=== PATIENT | female | born 1980 | race Caucasian/White ===

== ENCOUNTER 2017-03-03 10:34 | Inpatient (IN) | payer BC ==
[2017-03-03] MEDS ORDERED: Ampicillin 2 GM in Sodium Chloride 0.9% 100 ML IV ONE (11:30)
[2017-03-03] MEDS ORDERED: Nalbuphine 20 MG/1 ML Amp IVPUSH PRN (11:52)
[2017-03-03] MEDS ORDERED: Sodium Chloride 0.9% 10 ML Syringe FLUSH PRN (11:52)
[2017-03-03] MEDS ORDERED: Ondansetron 4 MG/2 ML SDV IVPUSH PRN (11:52)
[2017-03-03] MEDS ORDERED: Oxytocin/Lactated Ringers 10 UNIT/1,000 ML BAG IV SCH (12:00)
[2017-03-03] MEDS ORDERED: Lactated Ringers 1,000 ML IV SCH (12:00)
--- NOTE | 2017-03-03 13:43 | PCM.SN ---
- Free Text/Narrative Note: Poonam is a 37-year-old white female who was admitted in active labor on the a.m. of 03/03/2017 at 37 6/7 gestational age. She has an ÁLVARO of 03/18/2017 as determined by an ultrasound at 7 0/7 weeks gestational age on 07/30/2016. Her LMP was 05/30/2016. She began labor in the evening of 03/02/2017. Her sac broke around 0945 on 03/03/2017, prior to admission. She tested positive for membrane rupture at 1102. Fluids have been clear. She is having regular contractions of moderate to strong intensity. course: She was seen for her first visit at 12 weeks gestational age on 09/03/2016. Her weight increased from 128 lbs to 176 lbs for a 48 lb weight gain. She noted some decreased activity at 36 weeks gestation. NST was reactive and no contractions noted at the time. She had PIH with her first 17 years ago. No concerns with blood pressure during this . She is GBS positive. lab testing: Blood type is A negative , antibody screen was negative. Initial hemoglobin was 12.3 g/dl and platelets were 284,000. She is rubella immune. Hepatitis B and HIV were negative. Second trimester testing showed hemoglobin of 11.7 g/dl and platelets were 244,000. Urine was normal with 1+ leukocyte esterase. She tested positive for MTHFR Allergies: none Medications: Multiple vitamins oral tablet and TriStart DHA caps Past Medical History: PIH with first 17 years prior, history of abnormal PAP with HPV positive and normal colposcopy, PCOS, MTHFR Past Surgical History: none Family history: Mother - diverticulosis; father - benign tumor in jaw; 2 brothers alive and well; 3 sisters alive and well; no related problems in siblings; MGM - alive, some HD; MGF - of heart failure; PGF - of prostate cancer; MGM - alive and in old age; no history of female cancers or bleeding/clotting disorders. FOB Niece with heart defect Social History: Patient is . is Nicolas. She does not use any significant alcohol, drugs, or tobacco. She lives in [place], [place]. Review of symptoms: General: patient having no concerns other than contractions Skin: negative HEENT: negative Lungs: no shortness of breath Cardiovascular: no chest pain Breasts: changes associated with only GI: negative : changes associated with Neurological: negative Muscular skeletal: negative Physical Exam In general patient is a well-developed, well-nourished, pleasant female in active labor with contractions at the time of the interview. She is somewhat uncomfortable due to contractions. She appears to be a good historian. Skin: dry, warm, no lesions HEENT: neck and back are normal Lungs: clear, good breath sounds in all lung [place] Cardiovascular: RRR, without murmurs Breast exam: deferred, patient plans to nurse Abdomen is protuberant, fundal height consistent with term Musculoskeletal is within normal limits Assessment: 1: 37 6/7 week intrauterine in active labor 2: Group B strep positive 3: Patient is blood type A negative 4: Patient plans to nurse 5: Low risk 6: Patient desires natural without epidural Plan: 1: Anticipate normal vaginal delivery 2: Rhogam after delivery 3: Support nursing 4: Routine care
--- NOTE | 2017-03-03 15:07 | PCM.SN ---
- Free Text/Narrative Note: Delivery note:
[2017-03-03] MEDS ORDERED: Acetaminophen 325 MG Tab PO PRN (15:38)
[2017-03-03] MEDS ORDERED: Witch Hazel Medicated Pads 100/Jar TOP PRN (15:38)
[2017-03-03] MEDS ORDERED: Ibuprofen 600 MG Tab PO PRN (15:38)
[2017-03-03] MEDS ORDERED: Docusate Sodium 100 MG Cap PO PRN (15:38)
[2017-03-03] MEDS ORDERED: Lanolin 100% Cream 7 GM Tube TOP PRN (15:38)
[2017-03-03] MEDS ORDERED: Benzocaine/Menthol 20%-0.5% Spray 56 GM Canister TOP PRN (15:38)
[2017-03-03] MEDS ORDERED: Ampicillin 1 GM in Sodium Chloride 0.9% 100 ML IV SCH (16:00)
--- NOTE | 2017-03-04 11:11 | PCM.SN ---
- Free Text/Narrative Note: day 1: She is doing well. She has voided and had a bowel movement. Nursing is going well, no problems. She is ambulating. She notes some pain in her upper abdomen, lower rib cage on the right. She is afebrile and vital signs are stable. Abdomen is flat and nontender. Uterus is about 3 finger breadths below the umbilicus and firm. No significant edema Pain in her ribs is not tender to palpation. No skin changes noted. The pain is most likely musculoskeletal pain secondary to labor contractions and delivery. Hemoglobin - 13.2, hematocrit - 37.6, WBC - 13.27, platelets - 242 Assessment: day 1 recovery is good Plan: routine care Discharge home tomorrow
[2017-03-04] MEDS: Prenatal Multivitamin with Calcium/Folic Acid/Iron Tab PO SCH (15:12)
--- NOTE | 2017-03-05 09:01 | PCM.SN ---
- Free Text/Narrative Note: note day #2 Subjective: Patient is overall doing well. She denies any abdominal pain. She reports minimal lochia that is similar to a menstrual cycle. She reports she is breast-feeding without difficulty. She is tolerating regular diet. She is voiding without difficulty. She has had a bowel movement and is not having any difficulty. She denies any headaches, vision changes, or right upper quadrant pain. She denies any fevers or chills. Objective: Vital signs: T 36.1C HR: 63-88 (most recent 88) BP: 120s-140s/80s-90s (most recent 142/95) RR: 15-20 Gen.: No acute distress, alert and oriented Lungs: Clear to auscultation bilaterally Heart: Regular rate and rhythm Abdomen: Soft, nondistended, nontender, fundus 2 fingerbreadths below the umbilicus and nontender and midline Extremities: 1+ edema in feet to ankles bilaterally Labs: H/H: 13.2/37.6 -> 12.2/35.0 (03/05/17) Platelets: 242 -> 229 (03/05/17) AST: 19 ALT: 15 Assessment/plan: 37-year-old female day #2 status post with preeclampsia without severe features 1. Routine care 2. Continue close monitoring of blood pressures while admitted 3. Patient overall doing well anticipate patient to be discharged home today 4. Patient is nursing without difficulty 5. Patient should follow-up in the clinic on Friday or Friday for blood pressure check Lopez Spivey M.D. 9:06 AM 03/05/17
--- NOTE | 2017-03-05 09:31 | PCM.DCSUM1 ---
Discharge Summary - Hospital Course Free Text/Narrative:: Poonam is a 37-year-old 2 para 2001 white female who is admitted on 2016 in active labor with spontaneous rupture membranes. She progressed spontaneously to complete cervical dilation by approximately 1400 hrs. At 1449 hrs. on 03/03/2017 the patient delivered a velazquez, viable, female infant with Apgars of 8 and 9, a weight of 6 pounds 9.8 ounces (3000 g), a length of 19.5 inches in an occiput anterior position. Patient was in an all fours position on the bed for the delivery. Patient had no perineal lacerations. The cord was allowed to pulsate until it stopped then was clamped 2 and the father was allowed to cut the cord. The baby was placed on mom's abdomen. Nose and mouth were bulb suctioned. Pitocin was started after delivery of the baby to facilitate increase in uterine tone and decrease chance of bleeding. The placenta delivered intact, complete in a Bella presentation. The umbilical cord had 3 vessels. Estimated blood loss was 100 mL. The patient nursed after delivery. Condition: Good Patient had an overall uncomplicated course. She did have several elevated blood pressures without any signs or symptoms of preeclampsia with severe features. She was not treated with magnesium. She was discharged home on day #2 in good condition. She will follow up for blood pressure check in 3-5 days. HPI Initial Comments: Poonam is a 37-year-old 2 para 2001 white female who is admitted on 2016 in active labor with spontaneous rupture membranes. She progressed spontaneously to complete cervical dilation by approximately 1400 hrs. At 1449 hrs. on 03/03/2017 the patient delivered a velazquez, viable, female with Apgars of 8 and 9, a weight of 6 pounds 9.8 ounces (3000 g), a length of 19.5 inches in an occiput anterior position. Patient was in an all fours position on the bed for the delivery. Patient had no perineal lacerations. The cord was allowed to pulsate until it stopped then was clamped 2 and the father was allowed to cut the cord. The baby was placed on mom's abdomen. Nose and mouth were bulb suctioned. Pitocin was started after delivery of the baby to facilitate increase in uterine tone and decrease chance of bleeding. The placenta delivered intact, complete in a Bella presentation. The umbilical cord had 3 vessels. Estimated blood loss was 100 mL. The patient nursed after delivery. Condition: Good Patient had an overall uncomplicated course. She did have several elevated blood pressures without any signs or symptoms of preeclampsia with severe features. She was not treated with magnesium. She was discharged home on day #2 in good condition. She will follow up for blood pressure check in 3-5 days. Brief History: Poonam is a 37-year-old 2 para 2001 white female who is admitted on 03/03/2017 in active labor with spontaneous rupture membranes. She progressed spontaneously to complete cervical dilation by approximately 1400 hrs. At 1449 hrs. on 03/03/2017 the patient delivered a velazquez, viable, female infant with Apgars of 8 and 9, a weight of 6 pounds 9.8 ounces (3000 g), a length of 19.5 inches in an occiput anterior position. Patient was in an all fours position on the bed for the delivery. Patient had no perineal lacerations. The cord was allowed to pulsate until it stopped then was clamped 2 and the father was allowed to cut the cord. The baby was placed on mom's abdomen. Nose and mouth were bulb suctioned. Pitocin was started after delivery of the baby to facilitate increase in uterine tone and decrease chance of bleeding. The placenta delivered intact, complete in a Bella presentation. The umbilical cord had 3 vessels. Estimated blood loss was 100 mL. The patient nursed after delivery. Condition: Good. Patient had an overall uncomplicated course. She did have several elevated blood pressures without any signs or symptoms of preeclampsia with severe features. She was not treated with magnesium. She was discharged home on day #2 in good condition. She will follow up for blood pressure check in 3-5 days. - Discharge Data Discharge Date: 03/05/17 Discharge Disposition: Home, Self-Care 01 Condition: Good - Discharge Diagnosis/Problem(s) (1) (normal spontaneous vaginal delivery) SNOMED Code(s): 36577546 ICD Code: O80 - ENCOUNTER FOR FULL-TERM UNCOMPLICATED DELIVERY Status: Acute Current Visit: Yes Onset Date: ~03/03/17 (2) Mild pre-eclampsia, SNOMED Code(s): 55748656 ICD Code: O14.05 - MILD TO MODERATE PRE-ECLAMPSIA, COMPLICATING THE PUERPERIUM Status: Acute Current Visit: Yes Onset Date: ~03/03/17 - Patient Summary/Data Complications: None Consults: None Labs Pending at D/C: None Hospital Course: Overall uneventful. Several mildly elevated blood pressures that did not require any treatment. - Patient Instructions Diet: Regular Diet as Tolerated Activity: As Tolerated Driving: Do Not Drive (For 48 hours) Showering/Bathing: May Shower Notify Provider of: Fever, Increased Pain, Swelling and Redness, Drainage, Nausea and/or Vomiting - Discharge Plan Prescriptions/Med Rec: Lidocaine/Prilocaine [Lidocaine-Prilocaine Cream] 30 gm TP TID #30 cream..g. Home Medications: Home Meds Vits #93/Iron Fum/FA [ Formula Tablet] 1 tab PO DAILY 03/03/17 [History] Acetaminophen [Tylenol] 650 mg PO Q6H PRN tablet 03/05/17 [Rx] Benzocaine/Menthol [Dermoplast Pain Relief [place]] 1 spray TOP ASDIRECTED PRN canister 03/05/17 [Rx] Docusate Sodium [Colace] 100 mg PO BID PRN cap 03/05/17 [Rx] Ibuprofen [IJD: Ibuprofen] 600 mg PO Q6H PRN tablet 03/05/17 [Rx] Lanolin [Lansinoh HPA] 1 applic TOP ASDIRECTED PRN tube 03/05/17 [Rx] Lidocaine/Prilocaine [Lidocaine-Prilocaine Cream] 30 gm TP TID #30 cream..g. [Rx] Vit with Ca/FA/Iron [ Plus Iron] 1 each PO DAILY tablet [Rx] Arsen Melissa [Tucks] 1 pad TOP ASDIRECTED PRN pad 03/05/17 [Rx] Referrals: Isaac Rock MD [Physician] - (Follow-up on for blood pressure check and in [address] Rock for routine check.) - Discharge Summary/Plan Comment DC Time >30 min.: No - Patient Data Vitals - Most Recent: Last Vital Signs Temp 36.1 C 03/05/17 05:03 Pulse 88 03/05/17 05:48 Resp 15 03/05/17 05:03 BP 142/95 H 03/05/17 05:48 Pulse Ox 100 03/05/17 05:48 Weight - Most Recent: 73.482 kg I&O - Last 24 hours: Intake & Output 03/04/17 03/05/17 03/05/17 22:59 06:59 14:59 Intake Total 380 Balance 380 Lab Results - Last 24 hrs: Laboratory Results - last 24 hr 03/05/17 03/05/17 Range/Units 02:27 02:27 WBC 10.50 H (3.98-10.04) K/mm3 RBC 3.92 L (3.98-5.22) M/mm3 Hgb 12.2 (11.2-15.7) gm/L Hct 35.0 (34.1-44.9) % MCV 89.3 (79.4-94.8) fl MCH 31.1 (25.6-32.2) pg MCHC 34.9 (32.2-35.5) g/dl RDW Std Deviation 41.3 (36.4-46.3) fL Plt Count 229 (182-369) K/mm3 MPV 9.6 (9.4-12.3) fl Neut % (Auto) 64.2 (34.0-71.1) % Lymph % (Auto) 21.5 (19.3-51.7) % Steele % (Auto) 9.8 (4.7-12.5) % Eos % (Auto) 3.7 (0.7-5.8) Baso % (Auto) 0.4 (0.1-1.2) % Neut # (Auto) 6.74 H (1.56-6.13) K/mm3 Lymph # (Auto) 2.26 (1.18-3.74) K/mm3 Steele # (Auto) 1.03 H (0.24-0.36) K/mm3 Eos # (Auto) 0.39 H (0.04-0.36) K/mm3 Baso # (Auto) 0.04 (0.01-0.08) K/mm3 Sodium 140 (136-145) mEq/L Potassium 3.4 L (3.5-5.1) mEq/L Chloride 103 (98-107) mEq/L Carbon Dioxide 30 (21-32) mEq/L Anion Gap 10.4 (5-15) BUN 9 (7-18) mg/dL Creatinine 0.5 L (0.55-1.02) mg/dL Est Cr Clr Drug Dosing 139.97 mL/min Estimated GFR (MDRD) > 60 (>60) mL/min BUN/Creatinine Ratio 18.0 (14-18) Glucose 84 (74-106) mg/dL Calcium 8.8 (8.5-10.1) mg/dL Total Bilirubin 0.3 (0.2-1.0) mg/dL AST 19 (15-37) U/L ALT 15 (14-59) U/L Alkaline Phosphatase 89 (46-116) U/L Total Protein 6.4 (6.4-8.2) g/dl Albumin 2.6 L (3.4-5.0) g/dl Globulin 3.8 gm/dL Albumin/Globulin Ratio 0.7 L (1-2) Med Orders - Current: Current Medications Acetaminophen (Tylenol) 650 mg PO Q4H PRN PRN Reason: mild pain or fever Benzocaine/Menthol (Dermoplast Pain Relief [place]) 0 gm TOP ASDIRECTED PRN PRN Reason: Perineal Comfort Measure Last Admin: 03/03/17 17:16 Dose: 1 can Docusate Sodium (Colace) 100 mg PO BID PRN PRN Reason: Constipation Emollient Ointment (Lansinoh Hpa) 0 gm TOP ASDIRECTED PRN PRN Reason: Sore Nipples Last Admin: 03/04/17 15:12 Dose: 1 tube Ibuprofen (Motrin) 600 mg PO Q4H PRN PRN Reason: Mild pain or fever Prenat Multivit/Product Safety Associate/Iron/Folic Ac ( Plus Iron) 1 each PO DAILY RODRIGUEZ Last Admin: 03/04/17 15:12 Dose: Not Given Witch Melissa (Tucks) 1 pad TOP ASDIRECTED PRN PRN Reason: Hemorrhoid pain Last Admin: 03/03/17 17:16 Dose: 1 box Discontinued Medications Ampicillin Sodium 2 gm/ Sodium (Chloride) 100 mls @ 200 mls/hr IV ONETIME ONE Stop: 03/03/17 11:59 Last Admin: 03/03/17 11:50 Dose: 200 mls/hr Ampicillin Sodium 1 gm/ Sodium (Chloride) 100 mls @ 200 mls/hr IV Q4H RODRIGUEZ Lactated Ringer's (Ringers, Lactated) 1,000 mls @ 100 mls/hr IV ASDIRECTED RODRIGUEZ Last Admin: 03/03/17 11:50 Dose: 100 mls/hr Oxytocin/Lactated Ringer's (Pitocin In Lr 10 Units/1,000 Ml) 10 unit in 1,000 mls @ 500 mls/hr IV .CONTINUOUS RODRIGUEZ Last Admin: 03/03/17 15:00 Dose: 500 mls/hr Nalbuphine HCl (Nubain) 10 mg IVPUSH Q2H PRN PRN Reason: Pain (moderate 4-6) Ondansetron HCl (Zofran) 4 mg IVPUSH Q4H PRN PRN Reason: Nausea/Vomiting Sodium Chloride (Saline Flush) 10 ml FLUSH ASDIRECTED PRN PRN Reason: Keep Vein Open *Q Meaningful Use (DIS) - VTE *Q VTE Criteria *Q: - Stroke *Q Stroke Criteria *Q: - AMI *Q AMI Criteria *Q:
[2017-03-05] MEDS: Prenatal Multivitamin with Calcium/Folic Acid/Iron Tab PO SCH (10:58)
[2017-03-05] MEDS ORDERED: Zolpidem 5 MG Tab PO ONE (12:40)
[2017-03-05 18:46] VITALS: BP 135/88
--- NOTE | 2017-03-11 06:31 | PCM.LDHP ---
L&D History of Present Illness - General Date of Service: 03/03/17 Admit Problem/Dx: Admission Diagnosis/Problem Admission Diagnosis/Problem Normal labor 03/11/17 06:30 Poonam is a 37-year-old white female who was admitted in active labor on the a.m. of 03/03/2017 at 37 6/7 gestational age. She has an ÁLVARO of 03/18/2017 as determined by an ultrasound at 7 0/7 weeks gestational age on 07/30/2016. Her LMP was 05/30/2016. She began labor in the evening of 03/02/2017. Her sac broke around 0945 on 03/03/2017, prior to admission. She tested positive for membrane rupture at 1102. Fluids have been clear. She is having regular contractions of moderate to strong intensity. course: She was seen for her first visit at 12 weeks gestational age on 09/03/2016. Her weight increased from 128 lbs to 176 lbs for a 48 lb weight gain. She noted some decreased activity at 36 weeks gestation. NST was reactive and no contractions noted at the time. She had PIH with her first 17 years ago. No concerns with blood pressure during this . She is GBS positive. lab testing: Blood type is A negative , antibody screen was negative. Initial hemoglobin was 12.3 g/dl and platelets were 284,000. She is rubella immune. Hepatitis B and HIV were negative. Second trimester testing showed hemoglobin of 11.7 g/dl and platelets were 244,000. Urine was normal with 1+ leukocyte esterase. She tested positive for MTHFR Allergies: none Medications: Multiple vitamins oral tablet and TriStart DHA caps Past Medical History: PIH with first 17 years prior, history of abnormal PAP with HPV positive and normal colposcopy, PCOS, MTHFR Past Surgical History: none Family history: Mother - diverticulosis; father - benign tumor in jaw; 2 brothers alive and well; 3 sisters alive and well; no related problems in siblings; MGM - alive, some HD; MGF - of heart failure; PGF - of prostate cancer; MGM - alive and in old age; no history of female cancers or bleeding/clotting disorders. FOB Niece with heart defect Social History: Patient is . is Nicolas. She does not use any significant alcohol, drugs, or tobacco. She lives in [place], [place]. Review of symptoms: General: patient having no concerns other than contractions Skin: negative HEENT: negative Lungs: no shortness of breath Cardiovascular: no chest pain Breasts: changes associated with only GI: negative : changes associated with Neurological: negative Muscular skeletal: negative Physical Exam In general patient is a well-developed, well-nourished, pleasant female in active labor with contractions at the time of the interview. She is somewhat uncomfortable due to contractions. She appears to be a good historian. Skin: dry, warm, no lesions HEENT: neck and back are normal Lungs: clear, good breath sounds in all lung [place] Cardiovascular: RRR, without murmurs Breast exam: deferred, patient plans to nurse Abdomen is protuberant, fundal height consistent with term Musculoskeletal is within normal limits Assessment: 1: 37 6/7 week intrauterine in active labor 2: Group B strep positive 3: Patient is blood type A negative 4: Patient plans to nurse 5: Low risk 6: Patient desires natural without epidural Plan: 1: Anticipate normal vaginal delivery 2: Rhogam after delivery 3: Support nursing 4: Routine care - Related Data Allergies/Adverse Reactions: Allergies Allergy/AdvReac Type Severity Reaction Status Date / Time No Known Allergies Allergy Verified 12/13/16 12:51 Home Medications: Home Meds Vits #93/Iron Fum/FA [ Formula Tablet] 1 tab PO DAILY 03/03/17 [History] Acetaminophen [Tylenol] 650 mg PO Q6H PRN tablet 03/05/17 [Rx] Benzocaine/Menthol [Dermoplast Pain Relief [place]] 1 spray TOP ASDIRECTED PRN canister 03/05/17 [Rx] Docusate Sodium [Colace] 100 mg PO BID PRN cap 03/05/17 [Rx] Ibuprofen [IJD: Ibuprofen] 600 mg PO Q6H PRN tablet 03/05/17 [Rx] Lanolin [Lansinoh HPA] 1 applic TOP ASDIRECTED PRN tube 03/05/17 [Rx] Lidocaine/Prilocaine [Lidocaine-Prilocaine Cream] 30 gm TP TID #30 cream..g. 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 Social & Family History - Family History Family Medical History: Noncontributory - Tobacco Use Smoking Status *Q: Never Smoker Second Hand Smoke Exposure: No - Caffeine Use Caffeine Use: Reports: None - Recreational Drug Use Recreational Drug Use: No H&P Review of Systems - Review of Systems: Review Of Systems: See Below L&D Exam - Exam Exam: See Below - Vital Signs Vital Signs: Last Vital Signs Temp 36.6 C 03/05/17 12:01 Pulse 73 03/05/17 12:01 Resp 15 03/05/17 12:01 BP 135/88 03/05/17 18:00 Pulse Ox 97 03/05/17 12:01 Weight: 73.482 kg - Patient Data Result Diagrams: 03/05/17 02:27 03/05/17 02:27 Problem List Initiated/Reviewed/Updated: Yes Assessment/Plan Comment:: Assessment: 1: 37 6/7 week intrauterine in active labor 2: Group B strep positive 3: Patient is blood type A negative 4: Patient plans to nurse 5: Low risk 6: Patient desires natural without epidural Plan: 1: Anticipate normal vaginal delivery 2: Rhogam after delivery 3: Support nursing 4: Routine care
== END 2017-03-05 18:00 | disposition home or self-care (01) | DRG 560 ==
LOC: JD.OBCHECK 10:34 → JD.OB 10:37 → JD.OBCHECK 11:52 → JD.OB 11:53 → OBSVTOIN 14:49 → JD.OB 14:49
PROVIDERS: ADMIT Obstetrics & Gynecology; ATTEND Obstetrics & Gynecology
PROC: 10E0XZZ Delivery of Products of Conception, External Approach (ICD-10-PCS; principal; 2017-03-03)
DX: O42.02 Full-term premature rupture of membranes, onset of labor within 24 hours of rupture (principal); O99.824 Streptococcus B carrier state complicating childbirth; O14.05 Mild to moderate pre-eclampsia, complicating the puerperium; O69.81X0 Labor and delivery complicated by cord around neck, without compression, not applicable or unspecified; Z3A.38 38 weeks gestation of pregnancy; Z37.0 Single live birth
CPT/HCPCS: 36415; 59409; 80053; 84112; 85025; 85027; 85461; 86850; 86870; 86900; 86901; A9270-GY; J0290; J2590; J2790; J7030; J7120

== ENCOUNTER 2018-08-07 09:58 | Day surgery (SDC) | payer BC ==
--- NOTE | 2018-08-06 16:50 | PCM.LDHP ---
L&D History of Present Illness - General Date of Service: 08/07/18 Admit Problem/Dx: Admission Diagnosis/Problem Admission Diagnosis/Problem 08/06/18 16:20 Nonviable -9 weeks gestational age Source of Information: Patient History Limitations: Reports: No Limitations - Related Data Allergies/Adverse Reactions: Allergies Allergy/AdvReac Type Severity Reaction Status Date / Time No Known Allergies Allergy Verified 12/13/16 12:51 Home Medications: Home Meds Vits #93/Iron Fum/FA [ Formula Tablet] 1 tab PO DAILY 03/03/17 [History] Acetaminophen [Tylenol] 650 mg PO Q6H PRN tablet 03/05/17 [Rx] Benzocaine/Menthol [Dermoplast Pain Relief [place]] 1 spray TOP ASDIRECTED PRN canister 03/05/17 [Rx] Docusate Sodium [Colace] 100 mg PO BID PRN cap 03/05/17 [Rx] Ibuprofen [IJD: Ibuprofen] 600 mg PO Q6H PRN tablet 03/05/17 [Rx] Lanolin [Lansinoh HPA] 1 applic TOP ASDIRECTED PRN tube 03/05/17 [Rx] Lidocaine/Prilocaine [Lidocaine-Prilocaine Cream] 30 gm TP TID #30 cream..g. [Rx] Vit with Ca/FA/Iron [ Plus Iron] 1 each PO DAILY tablet [Rx] Witaleyda Melissa [Tucks] 1 pad TOP ASDIRECTED PRN pad 03/05/17 [Rx] Past Medical History [employer] BU[employer] P[employer] History: Reports: Polycystic Ovaries Social & Family History - Family History Family Medical History: Noncontributory - Caffeine Use Caffeine Use: Reports: None
--- NOTE | 2018-08-07 07:29 | HP ---
DATE OF ADMISSION: 08/07/2018 PREOPERATIVE HISTORY AND PHYSICAL ADMISSION DIAGNOSIS: Nonviable -9 weeks' gestational age. HISTORY OF PRESENT ILLNESS: The patient is a 38-year-old, 3, now para 2-0-1-2 white female, who has been assigned an ÁLVARO of 02/24/2019 by early ultrasound, who now was seen for first visit on 08/06/2018, at which time ultrasound showed no evidence of cardiac activity or activity. Confirmatory ultrasound was done in Radiology and supported the ultrasound done in clinic. At this time, etiology of her demise is unknown. Alternatives of care including natural passage of the tissue, Cytotec induction, or dilation suction and curettage have been presented to the patient. The procedures, risks, benefits, alternatives of care were discussed in detail. She has elected to undergo dilation suction and curettage. Consent is signed. 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 The patient is MTHFR positive. Has been on additional folic acid 1 mg per day orally. She has been on progesterone supplementation also. She had a history of 2 vaginal deliveries; first one a male born 12/17/1998 at age 38 weeks' gestational, 6 hour labor, 6 pounds 6 ounce, delivered in [place], had -induced hypertension, baby's name is Srinivas. Second child is female born 03[birth year]03[birth year]2017 at 38 and 6/7th weeks after 6 hours of labor, a 6 pound 11 ounce female named Isabela Cuello. The patient had menarche at age 14. Cycles of q.32 days. Last menstrual period was 05/03/2018. She does not use any control at the time of conception. Laboratory testing in shows her blood to be Rh negative. The patient is a candidate for RhoGAM therapy. ALLERGIES: None. CURRENT MEDICATIONS: 1. Multivitamins daily. 2. TriStart DHA caps 1 daily. 3. Progesterone supplementation in the form of vaginal suppositories 100 mg per vagina b.i.d. 4. Diclegis 10-10 mg oral tablets delayed release daily at bedtime. 5. Folic acid 1 mg orally 1 mg tablets-2 tablets daily. PAST MEDICAL HISTORY: 1. Abnormal Pap smear with colposcopy being done and normal. 2. Hirsutism. 3. Infertility. 4. Polycystic ovarian syndrome. 5. MTHFR positive. PAST SURGICAL HISTORY: Unremarkable. FAMILY HISTORY: Mother with diverticulosis. Father with benign tumor of the jaw. Two brothers alive and well. Three sisters alive and well. No related problems in siblings. Paternal grandmother alive with some heart disease. Maternal grandfather secondary to heart failure. Paternal grandfather secondary to prostate cancer. Maternal grandmother alive and in old age. No female cancers noted. No history of bleeding or blood clotting disorders. SOCIAL HISTORY: The patient is . is Nicolas Bennett. 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 She has had some high school education. She does not use any significant amounts of alcohol, drugs, or tobacco. REVIEW OF SYSTEMS: Unremarkable with the exception of symptoms. PHYSICAL EXAMINATION: VITAL SIGNS: In clinic, the patient was noted to have a blood pressure of 118/64, pregravid BMI is 26.6. Height is 5 feet 3 inches. Weight is 151 pounds. GENERAL: The patient is a well-developed, well-nourished, pleasant female, stated age, in no acute distress. SKIN: Warm and dry without lesions. HEENT, NECK, AND BACK: Within normal limits. LUNGS: Clear with good breath sounds in all lung medina. CARDIOVASCULAR: Shows regular rate and rhythm. No murmurs noted. BREASTS: Soft, nontender without masses, dimpling, or discharge bilaterally. No axillary or supraclavicular lymphadenopathy is noted. ABDOMEN: Flat, soft, nontender. Uterus is not palpated above the pubic bone. GENITAL: Perspective by mesh shows normal external genitalia, BUS, pubic hair pattern. EXTREMITIES AND NEUROLOGICAL: Grossly within normal limits. ASSESSMENT: 1. Nonviable intrauterine with dates presently at 11 and 0/7th weeks with nonviable fetus showing a crown-rump length consistent with 9 and 4/7th weeks. Confirmatory ultrasound confirms demise. 2. Risk factors for the include MTHFR positive status and PCOS status. Also progesterone deficiency on progesterone supplementation. 3. Generally healthy otherwise. PLAN: 1. After alternatives of care for miscarriage including natural passage, Cytotec induction, or dilation suction and curettage were presented to the patient, she opts for the last one. The procedure, risks, benefits, possible complications and followup were discussed in detail. She has signed a consent and wishes to proceed with dilation suction and curettage. 2. DVT prophylaxis with SCDs. 3. Infection prophylaxis with Ancef 2 g IV preop. 4. Rh immunoglobulin therapy to be given at the time of her D and C. VIANCA /[id number]
[2018-08-07] MEDS ORDERED: Lidocaine 1%/Sod Bicarbonate in NS 8.4% 1 ML Syringe IDERM PRN (10:09)
[2018-08-07] MEDS ORDERED: Sodium Chloride 0.9% 10 ML Syringe FLUSH PRN (10:09)
[2018-08-07] MEDS ORDERED: Lactated Ringers 1,000 ML IV SCH (10:15)
--- NOTE | 2018-08-07 11:45 | PCM.PREANE ---
Preanesthetic Assessment - Procedure Proposed Procedure: Suction D&C - Anesthesia/Transfusion/Family Hx Anesthesia History: No Prior Anesthesia Family History of Anesthesia Reaction: No Transfusion History: No Prior Transfusion(s) - Review of Systems General: No Symptoms Pulmonary: No Symptoms Cardiovascular: No Symptoms Gastrointestinal: Other (Occ GERD when . Diet controlled ) Neurological: No Symptoms Other: Reports: None - Physical Assessment NPO Status Date: 08/07/18 NPO Status Time: 02:10 O2 Sat by Pulse Oximetry: 100 Respiratory Rate: 17 Vital Signs: Last Vital Signs Temp 37.7 C 08/07/18 10:13 Pulse 86 08/07/18 10:13 Resp 17 08/07/18 10:13 BP 133/85 08/07/18 10:13 Pulse Ox 100 08/07/18 10:13 Height: 1.6 m Weight: 68.2 kg ASA Class: 2 Mental Status: Alert & Oriented x3 Airway Class: Mallampati = 1 Dentition: Reports: Normal Dentition Thyro-Mental Finger Breadths: 3 Mouth Opening Finger Breadths: 3 ROM/Head Extension: Full Lungs: Clear to Auscultation, Normal Respiratory Effort Cardiovascular: Regular Rate, Regular Rhythm - Lab Values: Laboratory Last Values WBC 9.84 K/mm3 (3.98-10.04) 08/07/18 10:33 RBC 4.83 M/mm3 (3.98-5.22) 08/07/18 10:33 Hgb 14.2 gm/L (11.2-15.7) 08/07/18 10:33 Hct 40.8 % (34.1-44.9) 08/07/18 10:33 MCV 84.5 fl (79.4-94.8) 08/07/18 10:33 MCH 29.4 pg (25.6-32.2) 08/07/18 10:33 MCHC 34.8 g/dl (32.2-35.5) 08/07/18 10:33 RDW Std Deviation 39.6 fL (36.4-46.3) 08/07/18 10:33 Plt Count 295 K/mm3 (182-369) 08/07/18 10:33 MPV 9.9 fl (9.4-12.3) 08/07/18 10:33 Neut % (Auto) 78.0 % (34.0-71.1) H 08/07/18 10:33 Lymph % (Auto) 15.0 % (19.3-51.7) L 08/07/18 10:33 Yell % (Auto) 5.9 % (4.7-12.5) 08/07/18 10:33 Eos % (Auto) 0.7 (0.7-5.8) 08/07/18 10:33 Baso % (Auto) 0.2 % (0.1-1.2) 08/07/18 10:33 Neut # (Auto) 7.67 K/mm3 (1.56-6.13) H 08/07/18 10:33 Lymph # (Auto) 1.48 K/mm3 (1.18-3.74) 08/07/18 10:33 Yell # (Auto) 0.58 K/mm3 (0.24-0.36) H 08/07/18 10:33 Eos # (Auto) 0.07 K/mm3 (0.04-0.36) 08/07/18 10:33 Baso # (Auto) 0.02 K/mm3 (0.01-0.08) 08/07/18 10:33 Blood Type A NEGATIVE 08/07/18 10:33 Rhogam Indicated Yes 08/07/18 10:33 - Allergies Allergies/Adverse Reactions: Allergies Allergy/AdvReac Type Severity Reaction Status Date / Time No Known Allergies Allergy Verified 08/07/18 11:08 - Blood Blood Available: No Product(s) Available: None - Anesthesia Plan Pre-Op Medication Ordered: None - Acknowledgements Anesthesia Type Planned: MAC Pt an Appropriate Candidate for the Planned Anesthesia: Yes Alternatives and Risks of Anesthesia Discussed w Pt/Guardian: Yes Pt/Guardian Understands and Agrees with Anesthesia Plan: Yes 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: Polycystic Ovaries - SUBSTANCE USE Smoking Status *Q: Never Smoker Second Hand Smoke Exposure: No Recreational Drug Use History: No - HOME MEDS Home Medications: Home Meds Vits #93/Iron Fum/FA [ Formula Tablet] 1 tab PO DAILY 03/03/17 [History] Acetaminophen [Tylenol] 650 mg PO Q6H PRN tablet 03/05/17 [Rx] Benzocaine/Menthol [Dermoplast Pain Relief [place]] 1 spray TOP ASDIRECTED PRN canister 03/05/17 [Rx] Docusate Sodium [Colace] 100 mg PO BID PRN cap 03/05/17 [Rx] Ibuprofen [IJD: Ibuprofen] 600 mg PO Q6H PRN tablet 03/05/17 [Rx] Lanolin [Lansinoh HPA] 1 applic TOP ASDIRECTED PRN tube 03/05/17 [Rx] Lidocaine/Prilocaine [Lidocaine-Prilocaine Cream] 30 gm TP TID #30 cream..g. [Rx] Vit with Ca/FA/Iron [ Plus Iron] 1 each PO DAILY tablet [Rx] Arsen Torres [Tucks] 1 pad TOP ASDIRECTED PRN pad 03/05/17 [Rx] - CURRENT (IN HOUSE) MEDS Current Meds: Current Medications Lactated Ringer's (Ringers, Lactated) 1,000 mls @ 125 mls/hr IV ASDIRECTED RODRIGUEZ Stop: 08/07/18 23:00 Last Admin: 08/07/18 10:33 Dose: 125 mls/hr Lidocaine/Sodium Bicarbonate (Buffered Lidocaine 1% In Ns 8.4%) 0.25 ml IDERM ONETIME PRN PRN Reason: Prior to IV Start Stop: 08/07/18 18:00 Sodium Chloride (Saline Flush) 10 ml FLUSH ASDIRECTED PRN PRN Reason: Keep Vein Open Stop: 08/07/18 23:00
[2018-08-07] MEDS ORDERED: Ketorolac 30 MG/ML SDV ONE (12:22)
[2018-08-07] MEDS ORDERED: Propofol 200 MG/20 ML SDV ONE (12:22)
[2018-08-07] MEDS ORDERED: Ondansetron 4 MG/2 ML SDV ONE (12:22)
[2018-08-07] MEDS ORDERED: Midazolam 1 MG/ML 2 ML SDV ONE (12:22)
[2018-08-07] MEDS ORDERED: fentaNYL 100 MCG/2 ML SDV ONE (12:22)
[2018-08-07] MEDS ORDERED: Lidocaine 1% 4 ML ONE (12:23)
[2018-08-07] MEDS ORDERED: ceFAZolin 1 GM Vial ONE (12:41)
[2018-08-07] MEDS ORDERED: Methylergonovine 0.2 MG/1 ML Amp ONE (12:50)
[2018-08-07] MEDS ORDERED: Ketamine 500 mg/10 ML MDV ONE (12:52)
--- NOTE | 2018-08-07 13:24 | PCM48HPAN ---
Post Anesthesia Note - EVALUATION WITHIN 48HRS OF ANESTHETIC Vital Signs in Normal Range: Yes Patient Participated in Evaluation: Yes Respiratory Function Stable: Yes Airway Patent: Yes Cardiovascular Function Stable: Yes Hydration Status Stable: Yes Pain Control Satisfactory: Yes Nausea and Vomiting Control Satisfactory: Yes Mental Status Recovered: Yes Pulse Rate: 81 SaO2: 97 Resp Rate: 12 Temperature: 37.2 C Blood Pressure: 113/69
--- NOTE | 2018-08-07 13:37 | PCM.OPNOTE ---
- General Post-Op/Procedure Note Date of Surgery/Procedure: 08/07/18 Operative Procedure(s): Dilation and suction curettage Findings: Uterus sounded to 13 cm. Tissue within the endometrial cavity consistent with products of conception. Pre Op Diagnosis: Miscarriage Post-Op Diagnosis: Same Anesthesia Technique: MAC Primary Surgeon: Isaac Rock Secondary Surgeon: Estrellita Zapata Electronic Imager: Neil Shine Electronic Imager Was Necessary: Assistance, retraction, patient safety Pathology: Endometrial curettings Fluid Replacement, Intraop: 1,200 EBL in mLs: 20 Complications: None Condition: Good Free Text/Narrative:: Surgery duration: 6 minutes The patient was taken to the operating room and placed in a supine position operating table. She received 2 g of Ancef preoperatively for infection prophylaxis and had sequential compression stockings in place for DVT prophylaxis. After adequate Mac anesthesia patient was placed in a dorsal lithotomy position. Methergine 0.2 mg was given IM at the beginning of the case. Patient also received regular dose of RhoGAM because of her Rh- status. A weighted speculum was placed in the vagina. Cervix is found to be dilated to approximately 0.8 centimeters. Uterus was sounded to approximately 13 cm. It was found to be anterior and mid position. An 8 mm suction curette was then introduced in routine fashion the endometrial cavity was evacuated. Moderate amount tissue was obtained. Findings consistent with products of conception. A medium size sharp curet was introduced and very careful fashion the endometrial cavity was curetted. It was be clear of any further tissue. The suction curet was then reintroduced and small and blood was removed. No further tissue was removed. This point the D&C was discontinued. The single-toothed tenaculum used to stabilize the anterior lip the cervix was removed. Blood was removed from the vagina with a stick sponge and the weighted speculum was removed from the vagina. MAC was reversed. The patient was discharged from the operating room in good condition.
[2018-08-07 14:26] VITALS: BP 118/68
== END 2018-08-07 14:30 | disposition home or self-care (01) ==
LOC: JD.SDS 09:58
PROVIDERS: ATTEND Obstetrics & Gynecology
DX: O03.4 Incomplete spontaneous abortion without complication (principal); E28.2 Polycystic ovarian syndrome; K21.9 Gastro-esophageal reflux disease without esophagitis; F32.9 Major depressive disorder, single episode, unspecified; Z79.899 Other long term (current) drug therapy
CPT/HCPCS: 36415; 59812; 85025; 86900; 86901; J0690; J1885; J2001; J2210; J2250; J2405; J2704; J2790; J3010; J7120; 01965

== ENCOUNTER 2019-11-25 07:15 | Inpatient (IN) | payer BC ==
--- NOTE | 2019-11-25 06:34 | PCM.LDHP ---
L&D History of Present Illness - General Date of Service: 11/25/19 Admit Problem/Dx: Admission Diagnosis/Problem Admission Diagnosis/Problem 11/25/19 06:20 Poonam is a 39-year-old 4 para 2011 white female presents at 39-0/7 weeks gestational age with an ÁLVARO of 12/02/2019 for elective induction of labor. Cervix upon admission is 4 cm, 80% effaced, very soft, mid position and -3 station. Source of Information: Patient History Limitations: Reports: No Limitations - History of Present Illness Introduction:: Poonam is a 39-year-old 4 para 2011 white female presents at 39-0/7 weeks gestational age with an ÁLVARO of 12/02/2019 for elective induction of labor. Cervix upon admission is 4 cm, 80% effaced, very soft, mid position and -3 station. Procedure of induction of labor, its risks, benefits, alternatives of care I discussed in detail the patient and her . They appear to understand and wish to proceed. 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 Duration 5-7 days. She is not using any control time of conception. Her ÁLVARO of 12/02/2019 was set by a certain last menstrual period starting 02/25/2019. It is supported by 3 ultrasounds done during the on 04/12/2019, 05/20/2019 and 07/30/2019. Patient denies any abnormal Pap smears, STI's or other abnormalities. Her previous pregnancies included the followin. Male infant born 12/17/1998 at 38 weeks gestational age after 6 hours of labor6 lbs. 6 oz.[facility]'s name is Srinivas 2. Female infant born 03/[birth year]/201737-6/7 weeks gestational age6 hours of labor6 lbs. 11 oz.[facility] [place]'s name is Isabela Cuello. 3. Miscarriage 08/07/201811 and 2/7 weeks gestational age. D&C done for evacuation of the uterus. course: Patient was seen for first visit on 04/12/2019. Ultrasound done at that time showed a viable at 6-1/7 weeks gestational age. Sound ÁLVARO correlated well with her LMP. She seen on a very regular basis throughout the . Her vital signs remained stable with the exception of a borderline blood pressure elevation that occurred at a pproximately 37 weeks. At that time she was evaluated with preeclampsia labs which were essentially normal and with at home blood pressure monitoring on a daily basis which returned normal also. Fundal height growth was appropriate. Her weight gain was from 155-187.4 pounds for a 32.4 pound increase. Patient's group B strep screen is negative. She is MTH F are positive. She has been on methyl folate 400 g 2 capsules daily. She has been on aspirin 81 mg by mouth daily. She has had a diagnosis of bacterial vaginosis in . She declined flu vaccination and her Tdap immunization. Her glucose tolerance test was elevated at the 1 hour evaluation but was normal at the 3 hour GTT. She has had some hemorrhoidal problems during the . She plans to breast-feed. Prequel noninvasive screen was negative for trisomy 21, 18 and 13. She had RhoGAM given on 08/23/2019. Laboratory testing : Blood is A- with a negative and by screen. RhoGAM given at the end of second trimester. Hemoglobin is 12.9 g/dL and platelets are 310,000 at first visit. Rubella titer showed immunity. RPR nonreactive. Urine culture was negative. Hepatitis B surface antigen and HIV assays were both negative. Chlamydia and gonorrhea testing were negative. TSH 09/16/2019 was 0.873 mU/mL. Second trimester hemoglobin was 12.0 g/dL and platelets were 283,000. Her 3 hour glucose tolerance test was normal with values of 80, 178, 167 and 83 over the course of the 4 evaluations. Hemoglobin on 10/15/2019 was normal at 12.7 g/dL. Platelets at that time were 246,000. Group B strep screen negative. Allergies: None Medications: 1. Perianal hydrocortisone cream 2.5% 3 times a day when necessary for hemorrhoidal discomfort 2. Multivitamins oral tablet daily 3. Methyl folate 400 g2 tabs daily 4. Aspirin 81 mg daily. Past medical history: 1. 2 2. Miscarriage 1. 3. induced hypertension with first 4. 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 Abnormal Pap smear but colposcopy done was within normal limits. 6. Infertility requiring Clomid and metformin therapy during this 7. Polycystic ovarian syndrome 8. MTHFR deficiency. Patient has been on methyl folate during this . Past surgical history: 1. D and C for SAB FH: Mother has history of diverticulosis. Father with benign tumor in his jaw. 2 brothers alive and well. 3 sisters alive and well. No -related problems and siblings. Maternal grandmother is alive but with some heart disease. Maternal grandfather of heart failure. Paternal grandfather of [place] state cancer. Paternal grandmother of heart disease at age 89. No female cancers noted and found no bleeding or blood clotting disorders noted. Social history: Patient is , lives in [place], [place]. is Nicolas. 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 She does not use any significant most alcohol, drugs or tobacco. Review of systems: In general patient has no complaints. Skin: Negative Lungs: No infectious symptoms or shortness of breath Cardiovascular: No chest pain or exercise intolerance Breasts: No lumps, changes in size, pain, dimpling, discharge or axillary or supraclavicular concerns. GI: Negative : Negative Musculoskeletal: Negative Neurological: Negative In general the patient is well-developed, well-nourished, pleasant female of stated age in no acute distress. On last evaluation clinic patient's blood pressure 126/74. Weight was 187.4. heart rate is 140. Repressing C weight was 155 pounds. Pre- BMI was 26.6. Height is 5 feet 3. Skin is warm dry without lesions. HEENT, neck and back within normal limits. Lungs are clear with good breath sounds in all lung medina. Cardiovascular exam shows regular and rhythm without murmurs. Abdomen is gravid with fundal height of 37.5 cm. Baby in vertex presentation.. Genital digital exam as defined above.. Extremities and neurological exam are grossly within normal limits. - Related Data Allergies/Adverse Reactions: Allergies Allergy/AdvReac Type Severity Reaction Status Date / Time No Known Allergies Allergy Verified 08/07/18 11:08 Home Medications: Home Meds Vits #93/Iron Fum/FA [ Formula Tablet] 1 tab PO DAILY 03/03/17 [History] Acetaminophen [Tylenol] 650 mg PO Q6H PRN tablet 03/05/17 [Rx] Benzocaine/Menthol [Dermoplast Pain Relief [place]] 1 spray TOP ASDIRECTED PRN canister 03/05/17 [Rx] Docusate Sodium [Colace] 100 mg PO BID PRN cap 03/05/17 [Rx] Ibuprofen [IJD: Ibuprofen] 600 mg PO Q6H PRN tablet 03/05/17 [Rx] Lanolin [Lansinoh HPA] 1 applic TOP ASDIRECTED PRN tube 03/05/17 [Rx] Lidocaine/Prilocaine [Lidocaine-Prilocaine Cream] 30 gm TP TID #30 cream..g. 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 3907 week intrauterine admitted for elective induction of labor 2. Risk factors for the include the following: MTHFR deficiency, age 39 years, history of induced hypertension with first , Rh- blood type. 3. Patient plans to breast-feed. 4. Patient is considering epidural for pain control labor and delivery Plan: 1. AROM induction. Anticipate normal spontaneous vaginal delivery. 2. Epidural when necessary per patient desire 3. Support breast-feeding decision 4. IV access 5. CBC and RPR per protocol 6. Routine labor care
[2019-11-25] MEDS ORDERED: Nalbuphine 10 MG/ML Syringe IVPUSH PRN (07:27)
[2019-11-25] MEDS ORDERED: Sodium Chloride 0.9% 10 ML Syringe FLUSH PRN (07:27)
[2019-11-25] MEDS ORDERED: Ondansetron 4 MG/2 ML SDV IVPUSH PRN (07:27)
[2019-11-25] MEDS ORDERED: Lactated Ringers 1,000 ML IV SCH (07:30)
[2019-11-25] MEDS ORDERED: Oxytocin/Lactated Ringers 10 UNIT/1,000 ML BAG IV SCH ×2 (07:30→07:45)
[2019-11-25] MEDS ORDERED: Lidocaine 1% 50 ML MDV ONE (10:56)
--- NOTE | 2019-11-25 11:08 | PCM.LDHP ---
L&D History of Present Illness - General Admit Problem/Dx: Admission Diagnosis/Problem Admission Diagnosis/Problem 11/25/19 06:20 Poonam is a 39-year-old 4 para 2012 white female presents at 39-0/7 weeks gestational age with an ÁLVARO of 12/02/2019 for elective induction of labor. Cervix upon admission is 4 cm, 80% effaced, very soft, mid position and -3 station. 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 Social & Family History - Family History Family Medical History: Noncontributory - Tobacco Use Smoking Status *Q: Never Smoker Second Hand Smoke Exposure: No - Caffeine Use Caffeine Use: Reports: None - Recreational Drug Use Recreational Drug Use: No L&D Exam - Vital Signs Vital Signs: Last Vital Signs Temp 36.8 C 11/25/19 07:28 Pulse 93 11/25/19 07:28 Resp 15 11/25/19 07:28 BP 142/99 H 11/25/19 07:28 Pulse Ox 99 11/25/19 07:28 Weight: 85.593 kg - Patient Data Lab Results Last 24 hrs: Laboratory Results - last 24 hr 11/25/19 Range/Units 08:12 WBC 7.99 (3.98-10.04) K/mm3 RBC 4.28 (3.98-5.22) M/mm3 Hgb 12.9 (11.2-15.7) gm/dl Hct 38.2 (34.1-44.9) % MCV 89.3 (79.4-94.8) fl MCH 30.1 (25.6-32.2) pg MCHC 33.8 (32.2-35.5) g/dl RDW Std Deviation 42.5 (36.4-46.3) fL Plt Count 238 (182-369) K/mm3 MPV 10.2 (9.4-12.3) fl Neut % (Auto) 71.4 H (34.0-71.1) % Lymph % (Auto) 17.9 L (19.3-51.7) % Pine % (Auto) 9.5 (4.7-12.5) % Eos % (Auto) 0.8 (0.7-5.8) Baso % (Auto) 0.3 (0.1-1.2) % Neut # (Auto) 5.71 (1.56-6.13) K/mm3 Lymph # (Auto) 1.43 (1.18-3.74) K/mm3 Pine # (Auto) 0.76 H (0.24-0.36) K/mm3 Eos # (Auto) 0.06 (0.04-0.36) K/mm3 Baso # (Auto) 0.02 (0.01-0.08) K/mm3 Result Diagrams: 11/25/19 08:12 Orders Last 24hrs: Active Orders 24 hr Category Date Time Status Patient Status [ADT] Routine ADT 11/25/19 07:28 Active Activity as Tolerated [RC] PFP Care 11/25/19 07:28 Active Communication Order [RC] ASDIRECTED Care 11/25/19 07:28 Active Heart Tones [RC] ASDIRECTED Care 11/25/19 07:29 Active Non Stress Test [RC] PER UNIT ROUTINE Care 11/25/19 07:28 Active Notify Provider [RC] PFP Care 11/25/19 07:28 Active Notify Provider [RC] PRN Care 11/25/19 07:28 Active Peripheral IV Care [RC] . DIRECTED Care 11/25/19 07:29 Active Pump Management, Intrathecal [RC] ASDIRECTED Care 11/25/19 07:30 Active Vital Signs [RC] PER UNIT ROUTINE Care 11/25/19 07:28 Active Regular Diet [DIET] Diet 11/25/19 Breakfast Active RAPID PLASMA REAGIN,RPR [CHEM] Routine Lab 11/25/19 07:28 Ordered Lactated Ringers [Ringers, Lactated] 1,000 ml Med 11/25/19 07:30 Active IV ASDIRECTED Nalbuphine [Nubain] Med 11/25/19 07:27 Active 10 mg IVPUSH Q2H PRN Ondansetron [Zofran] Med 11/25/19 07:27 Active 4 mg IVPUSH Q4H PRN Oxytocin/Lactated Ringers [Pitocin in LR 10 Units/1,000 Med 11/25/19 07:30 Active ML] 10 unit in 1,000 ml IV .CONTINUOUS Oxytocin/Lactated Ringers [Pitocin in LR 10 Units/1,000 Med 11/25/19 07:45 Active ML] 10 unit in 1,000 ml IV TITRATE Sodium Chloride 0.9% [Saline Flush] Med 11/25/19 07:27 Active 10 ml FLUSH ASDIRECTED PRN Electronic Heart Tones Ext w TOCO [WOMSER] Oth 11/25/19 07:28 Ordered Routine Electronic Heart Tones Internal [WOMSER] Per Unit Ot 11/25/19 07:28 Ordered Routine Peripheral IV Insertion Adult [OM.PC] Routine Ot 11/25/19 07:28 Ordered Resuscitation Status Routine Resus Stat 11/25/19 07:27 Ordered Medication Orders Oxytocin/Lactated Ringer's (Pitocin In Lr 10 Units/1,000 Ml) 10 unit in 1,000 mls @ 500 mls/hr IV .CONTINUOUS RODRIGUEZ Lactated Ringer's (Ringers, Lactated) 1,000 mls @ 100 mls/hr IV ASDIRECTED RODRIGUEZ Oxytocin/Lactated Ringer's (Pitocin In Lr 10 Units/1,000 Ml) 10 unit in 1,000 mls @ 12 mls/hr IV TITRATE RODRIGUEZ; Protocol Nalbuphine HCl (Nubain) 10 mg IVPUSH Q2H PRN PRN Reason: Pain Ondansetron HCl (Zofran) 4 mg IVPUSH Q4H PRN PRN Reason: Nausea/Vomiting Sodium Chloride (Saline Flush) 10 ml FLUSH ASDIRECTED PRN PRN Reason: Keep Vein Open Assessment/Plan Comment:: 1. 3907 week intrauterine admitted for elective induction of labor 2. Risk factors for the include the following: MTHFR deficiency, age 39 years, history of induced hypertension with first , Rh- blood type. 3. Patient plans to breast-feed. 4. Patient is considering epidural for pain control labor and delivery Plan: 1. AROM induction. Anticipate normal spontaneous vaginal delivery. 2. Epidural when necessary per patient desire 3. Support breast-feeding decision 4. IV access 5. CBC and RPR per protocol 6. Routine labor care
--- NOTE | 2019-11-25 14:25 | PCM.SN.2 ---
- Free Text/Narrative Note: Poonam is a 39-year-old 4 para 2011 white female presents at 39-0/7 weeks gestational age with an ÁLVARO of 12/02/2019 for elective induction of labor. Cervix upon admission was 4 cm, 80% effaced, very soft, mid position and -3 station.She underwent artificial rupture membranes induction. With this patient progressed quickly in labor and at approximately 1127 hrs. became completely dilated. heart tones were reassuring throughout the entire course of labor. Patient had a natural labor and used no analgesia. At 1156 hrs. on 11/25/2019, Poonam delivered a viable, velazquez, male infant with Apgars of 8 and 9, a weight of 3570 g (7 pounds 13.9 ounces) and a length of 19.0 inches. The baby delivered in a left occiput anterior position. After delivery the baby was placed on mom's abdomen. Nose and mouth were bulb suctioned baby was dried with warm blanket. Pitocin was increased to 500 mL an hour per protocol to facilitate and increase in uterine tone and to reduce the risk of bleeding. The umbilical cord was allowed to pulsate until approximately 3 minutes and then was clamped 2 and cut by the baby's father Nicolas. The umbilical cord had 3 vessels. Cord blood was obtained. The placenta delivered at at 1200 hrs. in a Bella presentation, appeared intact and complete and was discarded per patient desire. Estimated blood loss was 100 mL. Perineum was intact and no suturing was required. Patient plans to breast-feed. Condition: Good.
[2019-11-25] MEDS ORDERED: Acetaminophen 325 MG Tab PO PRN (14:58)
[2019-11-25] MEDS ORDERED: Benzocaine/Menthol 20%-0.5% Spray 56 GM Canister TOP PRN (14:58)
[2019-11-25] MEDS ORDERED: Ibuprofen 600 MG Tab PO PRN (14:58)
[2019-11-25] MEDS ORDERED: Witch Hazel Medicated Pads 40/Jar TOP PRN (14:58)
[2019-11-25] MEDS ORDERED: Docusate Sodium 100 MG Cap PO PRN (14:58)
--- NOTE | 2019-11-26 02:59 | PCM.DCSUM1 ---
Discharge Summary - Hospital Course Free Text/Narrative:: Poonam is a 39-year-old 4 para 2011 white female presents at 39-0/7 weeks gestational age with an ÁLVARO of 12/02/2019 for elective induction of labor. Cervix upon admission was 4 cm, 80% effaced, very soft, mid position and -3 station.She underwent artificial rupture membranes induction. With this patient progressed quickly in labor and at approximately 1127 hrs. became completely dilated. heart tones were reassuring throughout the entire course of labor. Patient had a natural labor and used no analgesia. At 1156 hrs. on 11/25/2019, Poonam delivered a viable, velazquez, male infant with Apgars of 8 and 9, a weight of 3570 g (7 pounds 13.9 ounces) and a length of 19.0 inches. The baby delivered in a left occiput anterior position. After delivery the baby was placed on mom's abdomen. Nose and mouth were bulb suctioned baby was dried with warm blanket. Pitocin was increased to 500 mL an hour per protocol to facilitate and increase in uterine tone and to reduce the risk of bleeding. The umbilical cord was allowed to pulsate until approximately 3 minutes and then was clamped 2 and cut by the baby's father Nicolas. The umbilical cord had 3 vessels. Cord blood was obtained. The placenta delivered at at 1200 hrs. in a Bella presentation, appeared intact and complete and was discarded per patient desire. Estimated blood loss was 100 mL. Perineum was intact and no suturing was required. patient has done well. She is nursing without problems, has minimal lochia. She is voiding well and ambulating without concerns. She is desiring discharge home. Condition: Good. Diagnosis: Stroke: No - Discharge Data Discharge Date: 11/26/19 Discharge Disposition: Home, Self-Care 01 Condition: Good - Referral to Home Health Primary Care Physician: Isaac Rock MD - Patient Instructions Diet: Regular Diet as Tolerated (Nursing diet with increased calcium and calories as recommended) Activity: As Tolerated (No intercourse or tampons until bleeding resolves) Driving: May Drive Today Showering/Bathing: May Shower (May take a bath) Notify Provider of: Fever, Increased Pain, Swelling and Redness, Nausea and/or Vomiting - Discharge Plan Home Medications: Home Meds Vit with Ca/FA/Iron [ Plus Iron] 1 each PO DAILY tablet 03/05/17 [Rx] Acetaminophen [Tylenol] 650 mg PO Q4H PRN tablet 11/26/19 [Rx] Ibuprofen [Motrin] 600 mg PO Q4H PRN tablet 11/26/19 [Rx] Referrals: Isaac Rock MD [Primary Care Provider] - (Return to clinicDr[facility] weeks.) - Discharge Summary/Plan Comment DC Time >30 min.: No Discharge Summary/Plan Comment: Discharge instructions: 1. Discharge home 2. Diet, activity and follow-up discussed with patient. Recommend nursing diet with increased calories and calcium. 3. Precautions given concern increased pain, bleeding, temperature, signs/symptoms of DVT/PE. 4. Medications per home medication was printed, discussed with and given to the patient. 5. Return to clinic-Dr. Rock[facility] in 2 weeks. Diagnosis: Term -delivered Condition: Good - Patient Data Vitals - Most Recent: Last Vital Signs Temp 36.7 C 11/25/19 19:49 Pulse 99 11/25/19 19:49 Resp 12 11/25/19 19:49 BP 132/77 11/25/19 19:49 Pulse Ox 97 11/25/19 19:49 Weight - Most Recent: 85.593 kg I&O - Last 24 hours: Intake & Output 11/25/19 11/25/19 11/26/19 14:59 22:59 06:59 Intake Total 500 Balance 500 Lab Results - Last 24 hrs: Laboratory Results - last 24 hr 11/25/19 Range/Units 08:12 WBC 7.99 (3.98-10.04) K/mm3 RBC 4.28 (3.98-5.22) M/mm3 Hgb 12.9 (11.2-15.7) gm/dl Hct 38.2 (34.1-44.9) % MCV 89.3 (79.4-94.8) fl MCH 30.1 (25.6-32.2) pg MCHC 33.8 (32.2-35.5) g/dl RDW Std Deviation 42.5 (36.4-46.3) fL Plt Count 238 (182-369) K/mm3 MPV 10.2 (9.4-12.3) fl Neut % (Auto) 71.4 H (34.0-71.1) % Lymph % (Auto) 17.9 L (19.3-51.7) % [place] % (Auto) 9.5 (4.7-12.5) % Eos % (Auto) 0.8 (0.7-5.8) Baso % (Auto) 0.3 (0.1-1.2) % Neut # (Auto) 5.71 (1.56-6.13) K/mm3 Lymph # (Auto) 1.43 (1.18-3.74) K/mm3 [place] # (Auto) 0.76 H (0.24-0.36) K/mm3 Eos # (Auto) 0.06 (0.04-0.36) K/mm3 Baso # (Auto) 0.02 (0.01-0.08) K/mm3 Med Orders - Current: Current Medications Acetaminophen (Tylenol) 650 mg PO Q4H PRN PRN Reason: mild pain or fever Benzocaine/Menthol (Dermoplast Pain Relief [place]) 0 gm TOP ASDIRECTED PRN PRN Reason: Perineal Comfort Measure Last Admin: 11/25/19 16:04 Dose: 1 can Documented by: Docusate Sodium (Colace) 100 mg PO BID PRN PRN Reason: Constipation Ibuprofen (Motrin) 600 mg PO Q4H PRN PRN Reason: Mild pain or fever Prenat Multivit/Coding Analyst/Iron/Folic Ac ( Plus Iron) 1 each PO DAILY [facility] Arsen Torres (Wendy) 1 pad TOP ASDIRECTED PRN PRN Reason: Perineal Comfort Measure Last Admin: 11/25/19 16:04 Dose: 1 tub Documented by: Discontinued Medications Oxytocin/Lactated Ringer's (Pitocin In Lr 10 Units/1,000 Ml) 10 unit in 1,000 mls @ 500 mls/hr IV .CONTINUOUS RODRIGUEZ Last Admin: 11/25/19 11:12 Dose: 500 mls/hr Documented by: Lactated Ringer's (Ringers, Lactated) 1,000 mls @ 100 mls/hr IV ASDIRECTED RODRIGUEZ Last Admin: 11/25/19 11:11 Dose: 100 mls/hr Documented by: Oxytocin/Lactated Ringer's (Pitocin In Lr 10 Units/1,000 Ml) 10 unit in 1,000 mls @ 12 mls/hr IV TITRATE RODRIGUEZ; Protocol Lidocaine HCl (Xylocaine 1%) Confirm Administered Dose 0 ml .ROUTE .[facility] Stop: 11/25/19 10:57 Last Admin: 11/25/19 21:12 Dose: Not Given Documented by: Nalbuphine HCl (Nubain) 10 mg IVPUSH Q2H PRN PRN Reason: Pain Ondansetron HCl (Zofran) 4 mg IVPUSH Q4H PRN PRN Reason: Nausea/Vomiting Sodium Chloride (Saline Flush) 10 ml FLUSH ASDIRECTED PRN PRN Reason: Keep Vein Open
[2019-11-26] MEDS ORDERED: Calcium Carbonate 500 MG Tab.Chew PO ONE (05:06)
[2019-11-26] MEDS: Hydrocortisone Acetate 25 MG Supp RECTAL SCH ×2 (05:25→19:07)
[2019-11-26] MEDS ORDERED: Prenatal Multivitamin with Calcium/Folic Acid/Iron Tab PO SCH (09:00)
--- NOTE | 2019-11-26 11:07 | PCM.SN.2 ---
- Free Text/Narrative Note: HPI: Poonam is a 39-year-old white female now who is 1 day post successful spontaneous vaginal delivery of a velazquez male infant following induction by AROM. She reports she is feeling well today and is eager to go home this evening. She reports getting 2-3 hours of sleep last night and feeling very tired now. She has been having mild bloody discharge ranging from bright red to dark brown, but denies any further clot passage. She has been able to void and ambulate without assistance. She notes she was having difficulty having a bowel movement due to painful hemorrhoids, but was finally able to have a bowel movement after receiving a suppository this morning. Patient reports breast feeding is going really well and baby is latching appropriately. She is pleased with how well breast feeding is going, but reports some cramping associated with breast feeding. Patient denies any fevers, chills, or nausea at this time. PE: Patient is alert and oriented and appears comfortable but fatigued. Vital signs are within normal limits. Heart and lung sounds normal. Uterine size is reduced to 2-3cm above the pubic symphysis. Plan: Patient had questions about what to expect with uterine bleeding going forward. The pattern of what to expect as far of bleeding was explained to patient and red flag symptoms were described. Patient understood and had no other questions or concerns. Patient will be discharged home later today.
[2019-11-26 16:28] VITALS: BP 124/89; PULSE 84
== END 2019-11-26 18:55 | disposition home or self-care (01) | DRG 560 ==
LOC: JD.OB 07:15 → OBSVTOIN 11:56
PROVIDERS: ADMIT Obstetrics & Gynecology; ATTEND Obstetrics & Gynecology
PROC: 10E0XZZ Delivery of Products of Conception, External Approach (ICD-10-PCS; principal; 2019-11-25)
PROC: 10907ZC Drainage of Amniotic Fluid, Therapeutic from Products of Conception, Via Natural or Artificial Opening (ICD-10-PCS; 2019-11-25)
DX: O22.43 Hemorrhoids in pregnancy, third trimester (principal); Z37.0 Single live birth; Z3A.39 39 weeks gestation of pregnancy
CPT/HCPCS: 36415; 59025; 59409; 85025; A9270-GY; J2590; J7120